=== PATIENT | male | born 1985 | race Caucasian/White ===

== ENCOUNTER 2017-01-11 07:27 | Inpatient (IN) | payer SELFPAY ==
[~2017-01-11] VITALS: Ht 172.7 cm; Wt 73.7 kg
[2017-01-11 07:27] VITALS: BP 138/66; PULSE 121; RESP 15; TEMP 99.2; O2SAT 99
[~2017-01-11 07:27] MED LIST: CLIN150 PO; IBUP-232 PO
[2017-01-11] MEDS ORDERED: oxyCODONE/ACETAMINOPHEN 5 MG/325 MG TAB PO ONE (08:00)
[2017-01-11] MEDS ORDERED: VANCOMYCIN INJ 1,000 MG in SODIUM CHLOR 0.9% 250 ML INJ 250 ML IV ONE (08:00)
[2017-01-11] MEDS ORDERED: SODIUM CHLOR 0.9% 1000 ML INJ 1,000 ML IV ONE (08:00)
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
[2017-01-11 08:18] VITALS: PULSE 102
[2017-01-11 08:23] LABS: AUTOMATED NEUTROPHIL # 24.3 TH/MM3 (1.8-7.7); BASOPHIL # 0.1 TH/MM3 (0-0.2); BASOPHIL % 0.4 % (0.0-2.0); EOSINOPHIL # 0.3 TH/MM3 (0-0.4); EOSINOPHIL % 0.8 % (0.0-4.0); HEMATOCRIT 37.1 % (39.0-51.0); LYMPH % 15.9 % (9.0-44.0); LYMPHOCYTE # 5.3 TH/MM3 (1.0-4.8); MEAN CELL VOLUME 92.8 FL (80.0-100.0); MEAN CORPUSCULAR HEMOGLOBIN 31.2 PG (27.0-34.0); MEAN CORPUSCULAR HGB CONC 33.6 % (32.0-36.0); MONO % 9.8 % (0.0-8.0); NEUT % 73.1 % (16.0-70.0); PLATELET COUNT 293 TH/MM3 (150-450); RED CELL DISTRIBUTION WIDTH 13.1 % (11.6-17.2); WHITE BLOOD COUNT 33.3 TH/MM3 (4.0-11.0)
[2017-01-11 08:32] LABS: HEMO FLAGS AUTO DIFF
[2017-01-11 08:40] LABS: ALKALINE PHOSPHATASE 93 U/L (45-117); TOTAL BILIRUBIN ADULT 0.9 MG/DL (0.2-1.0)
[2017-01-11 08:48] LABS: ALT (GPT) 54 U/L (12-78); ANION GAP 9 MEQ/L (5-15); AST (GOT) 28 U/L (15-37); BLOOD UREA NITROGEN 7 MG/DL (7-18); CHLORIDE 101 MEQ/L (98-107); GLOMERULAR FILTRATION RATE 88 ML/MIN (>89); POTASSIUM 3.2 MEQ/L (3.5-5.1); SODIUM (NA) 136 MEQ/L (136-145)
[2017-01-11 09:18] LABS: BANDS 11 % (0-6); BASOPHILS 1 % (0-2); EOSINOPHILS 2 % (0-4); NEUTROPHIL # MANUAL DIFF 22.3 TH/MM3 (1.8-7.7); POLYS (SEG NEUTROPHILS) 56 % (16-70); WBC DIFF SAMPLE 100
[2017-01-11 09:19] LABS: SCAN/DIFF FINAL DIFF MANUAL
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
[2017-01-11 10:02] VITALS: BP 97/55; PULSE 90; RESP 18; O2SAT 97
[2017-01-11] MEDS ORDERED: KETOROLAC TROMETHAMINE 30 MG/ML (IVP) VIAL IVP PRN (10:15)
[2017-01-11] MEDS ORDERED: ACETAMINOPHEN 500 MG CPLT PO PRN (10:15)
[2017-01-11] MEDS ORDERED: SODIUM CHLORIDE 0.9% FLUSH 10 ML FLUSH IV FLUSH PRN (10:15)
--- NOTE | 2017-01-11 10:58 | RADRPT ---
EXAM DATE/TIME: 01/11/2017 10:24 [place] COMPARISON: No previous studies available for comparison. INDICATIONS : Swelling and redness right ankle MEDICAL HISTORY : None. SURGICAL HISTORY : None. ENCOUNTER: Initial ACUITY: 1 day PAIN SCORE: Non-responsive. LOCATION: Right Ankle FINDINGS: No definite fractures, or dislocations are identified. No definite lytic or sclerotic lesion is seen . Soft tissue swelling is identified. CONCLUSION: Soft tissue swelling and no definite fracture for technique. KRissa Steve MD on January 11, 2017 at 10:56 Board Certified Radiologist. This report was verified electronically.
[2017-01-11 11:30] LABS: AMPHETAMINE, URINE POS (NEG); BARBITURATES, URINE NEG (NEG); COCAINE, URINE NEG (NEG)
[2017-01-11 12:30] VITALS: BP 97/52; PULSE 69; RESP 16; TEMP 96; O2SAT 100
[2017-01-11] MEDS ORDERED: POTASSIUM CHLORIDE 10 MEQ CAP PO ONE (12:45)
[2017-01-11 16:00] VITALS: BP 107/55; PULSE 88; RESP 16; TEMP 96.1; O2SAT 100
--- NOTE | 2017-01-11 16:52 | EKG ---
Date Performed: 01/11/2017 Time Performed: 13:10:57 PTAGE: 31 years EKG: Sinus rhythm POSSIBLE INFERIOR MYOCARDIAL INFARCTION , PROBABLY OLD BORDERLINE ECG NO PREVIOUS TRACING DOCTOR: Jamie Kendall Interpretating Date/Time 01/11/2017 16:50:40
[2017-01-11] MEDS: ACETAMINOPHEN/HYDROcodone 325 MG/7.5 MG TAB PO PRN ×2 (17:14→22:47)
--- NOTE | 2017-01-11 19:25 | HHI.PR ---
Addendum to Inpatient Note Addendum Reason: Additional Documentation Additional Information Interval history: UDS positive for amphetamines Most recent vitals: Temperature: 96.1, HR: 88, RR: 16, BP: 107/55, O2: 100% on room air Pt seen at approximately 18:15. He was significantly more alert. He was trying to have an important conversation on the phone. He reported that he was doing fine and asked if I could come back at another time so he could finish his conversation. He is conversing appropriately and is able to answer questions. Altered mental status appears to have resolved. Continue to monitor. Rose Santizo MD R2 Jan 11, 2017 19:25
[2017-01-11] MEDS: SODIUM CHLOR 0.9% 1000 ML INJ 1,000 ML IV SCH (19:47)
[2017-01-11 20:00] VITALS: BP 92/51; PULSE 79; RESP 19; TEMP 96.2; O2SAT 100
[2017-01-11] MEDS: VANCOMYCIN INJ 1,500 MG in SODIUM CHLORID 0.9% 500 ML INJ 500 ML IV SCH (22:11)
[2017-01-11] MEDS: SODIUM CHLORIDE 0.9% FLUSH 10 ML FLUSH IV FLUSH SCH (22:11)
[2017-01-12] VITALS: BP 104/57; PULSE 91; RESP 18; TEMP 97.1; O2SAT 100
[2017-01-12 04:00] VITALS: BP 94/51; PULSE 72; RESP 18; TEMP 97.1; O2SAT 100
[2017-01-12] MEDS: SODIUM CHLOR 0.9% 1000 ML INJ 1,000 ML IV SCH ×3 (05:03→22:56)
[2017-01-12] MEDS: ACETAMINOPHEN/HYDROcodone 325 MG/7.5 MG TAB PO PRN ×4 (05:05→20:22)
[2017-01-12 07:56] LABS: AUTOMATED NEUTROPHIL # 9.8 TH/MM3 (1.8-7.7); BASOPHIL # 0.1 TH/MM3 (0-0.2); BASOPHIL % 0.4 % (0.0-2.0); EOSINOPHIL # 0.4 TH/MM3 (0-0.4); EOSINOPHIL % 2.8 % (0.0-4.0); LYMPH % 18.6 % (9.0-44.0); LYMPHOCYTE # 2.7 TH/MM3 (1.0-4.8); MEAN CELL VOLUME 93.7 FL (80.0-100.0); MEAN CORPUSCULAR HGB CONC 33.1 % (32.0-36.0); MONO % 10.7 % (0.0-8.0); NEUT % 67.5 % (16.0-70.0); PLATELET COUNT 324 TH/MM3 (150-450); RED BLOOD COUNT 3.84 MIL/MM3 (4.50-5.90); RED CELL DISTRIBUTION WIDTH 13.3 % (11.6-17.2); WHITE BLOOD COUNT 14.5 TH/MM3 (4.0-11.0)
[2017-01-12 08:00] VITALS: BP 97/53; PULSE 75; RESP 18; TEMP 98.7; O2SAT 100
[2017-01-12 08:00] LABS: HEMO FLAGS AUTO DIFF
[2017-01-12 08:28] LABS: BICARBONATE 26.1 MEQ/L (21.0-32.0); POTASSIUM 4.1 MEQ/L (3.5-5.1)
[2017-01-12 08:45] LABS: BANDS 12 % (0-6); EOSINOPHILS 2 % (0-4); NEUTROPHIL # MANUAL DIFF 10.9 TH/MM3 (1.8-7.7); POLYS (SEG NEUTROPHILS) 63 % (16-70); WBC DIFF SAMPLE 100
[2017-01-12 08:46] LABS: PLATELET ESTIMATE SMEAR NORMAL (NORMAL); PLATELET MORPHOLOGY NORMAL (NORMAL); SCAN/DIFF FINAL DIFF MANUAL
[2017-01-12] MEDS: ENOXAPARIN SODIUM 40 MG/0.4 ML SYRINGE SQ SCH ×2 (10:27→10:31)
[2017-01-12] MEDS: VANCOMYCIN INJ 1,500 MG in SODIUM CHLORID 0.9% 500 ML INJ 500 ML IV SCH ×2 (10:28→20:23)
[2017-01-12] MEDS: SODIUM CHLORIDE 0.9% FLUSH 10 ML FLUSH IV FLUSH SCH ×2 (10:28→22:54)
[2017-01-12 13:00] VITALS: BP 106/54; PULSE 86; RESP 18; TEMP 97.4; O2SAT 97
[2017-01-12] MEDS ORDERED: CHLORHEXIDINE GLUCONATE 4% SOLN 120 ML BTL TOPICAL ONE (13:30)
[2017-01-12] MEDS: MUPIROCIN 2% OINT 22 GM TUBE TOPICAL SCH ×2 (13:30→21:00)
[2017-01-12] MEDS ORDERED: MUPIROCIN 2% OINT 22 GM TUBE TOPICAL SCH (14:00)
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
[2017-01-12 16:00] VITALS: BP 104/57; PULSE 74; RESP 18; TEMP 98; O2SAT 98
[2017-01-12 20:15] VITALS: BP 112/59; PULSE 95; RESP 16; TEMP 97.1; O2SAT 99
[2017-01-13] VITALS: BP 112/58; PULSE 97; RESP 16; TEMP 96.5; O2SAT 98
[2017-01-13] MEDS: ACETAMINOPHEN/HYDROcodone 325 MG/7.5 MG TAB PO PRN ×6 (00:26→22:40)
[2017-01-13 00:45] LABS: MRSA PCR POSITIVE (NEGATIVE); STAPH AUREUS PCR POSITIVE (NEGATIVE)
[2017-01-13 04:00] VITALS: BP 132/58; PULSE 72; RESP 16; TEMP 96.6; O2SAT 99
[2017-01-13 08:48] VITALS: BP 102/66; PULSE 86; RESP 16; TEMP 96.8; O2SAT 96
[2017-01-13] MEDS: VANCOMYCIN INJ 1,500 MG in SODIUM CHLORID 0.9% 500 ML INJ 500 ML IV SCH ×2 (08:59→22:40)
[2017-01-13] MEDS: SODIUM CHLORIDE 0.9% FLUSH 10 ML FLUSH IV FLUSH SCH ×2 (09:00→21:00)
[2017-01-13] MEDS: MUPIROCIN 2% OINT 22 GM TUBE TOPICAL SCH ×2 (09:01→21:00)
[2017-01-13 10:16] LABS: HEMATOCRIT 36.9 % (39.0-51.0); MEAN CORPUSCULAR HEMOGLOBIN 31.5 PG (27.0-34.0); MEAN CORPUSCULAR HGB CONC 33.6 % (32.0-36.0); PLATELET COUNT 385 TH/MM3 (150-450); RED BLOOD COUNT 3.93 MIL/MM3 (4.50-5.90); RED CELL DISTRIBUTION WIDTH 13.6 % (11.6-17.2); REVIEW FLAG FINAL; WHITE BLOOD COUNT 10.3 TH/MM3 (4.0-11.0)
[2017-01-13 11:01] LABS: BICARBONATE 27.9 MEQ/L (21.0-32.0); POTASSIUM 4.3 MEQ/L (3.5-5.1)
[2017-01-13] MEDS: ENOXAPARIN SODIUM 40 MG/0.4 ML SYRINGE SQ SCH (11:09)
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
[2017-01-13 12:00] VITALS: BP 110/61; PULSE 76; RESP 16; TEMP 96; O2SAT 98
[2017-01-13] MEDS: SODIUM CHLOR 0.9% 1000 ML INJ 1,000 ML IV SCH ×2 (14:01→22:41)
[2017-01-13 16:00] VITALS: BP 102/54; PULSE 76; RESP 16; TEMP 96.6; O2SAT 98
[2017-01-13 20:00] VITALS: BP 111/59; PULSE 60; RESP 18; TEMP 98; O2SAT 97
[2017-01-14] VITALS: BP 113/56; PULSE 69; RESP 16; TEMP 97.5; O2SAT 99
[2017-01-14 04:00] VITALS: BP 104/55; PULSE 87; RESP 16; TEMP 98.2; O2SAT 100
[2017-01-14] MEDS: SODIUM CHLOR 0.9% 1000 ML INJ 1,000 ML IV SCH (06:35)
[2017-01-14 08:00] VITALS: BP 110/53; PULSE 85; RESP 18; TEMP 98.5; O2SAT 97
[2017-01-14] MEDS: VANCOMYCIN INJ 1,500 MG in SODIUM CHLORID 0.9% 500 ML INJ 500 ML IV SCH ×2 (08:26→20:58)
[2017-01-14] MEDS: SODIUM CHLORIDE 0.9% FLUSH 10 ML FLUSH IV FLUSH SCH ×2 (08:26→20:54)
[2017-01-14] MEDS: ACETAMINOPHEN/HYDROcodone 325 MG/7.5 MG TAB PO PRN ×4 (08:28→22:12)
[2017-01-14] MEDS: MUPIROCIN 2% OINT 22 GM TUBE TOPICAL SCH ×2 (08:32→21:02)
[2017-01-14 12:00] VITALS: BP 104/57; PULSE 78; RESP 16; TEMP 98.4; O2SAT 99
[2017-01-14] MEDS: ENOXAPARIN SODIUM 40 MG/0.4 ML SYRINGE SQ SCH (13:52)
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
--- NOTE | 2017-01-14 15:55 | HHI.DCPOC ---
Discharge Care Plan Diagnosis: (1) Drug use (2) Cellulitis of right leg (3) Sepsis Goals to Promote Your Health * To prevent worsening of your condition and complications * To maintain your health at the optimal level Directions to Meet Your Goals Take your medications as prescribed Follow your dietary instruction Follow activity as directed Keep your appointments as scheduled Take your immunizations and boosters as scheduled If your symptoms worsen call your PCP, if no PCP go to Urgent Care Center or Emergency Room Smoking is Dangerous to Your Health. Avoid second hand smoke Call the 24-hour hour crisis hotline for domestic abuse at Rose Santizo MD R2 Jan 14, 2017 15:55
[2017-01-14 16:00] VITALS: BP 114/68; PULSE 89; RESP 18; TEMP 98.6; O2SAT 99
[2017-01-14] MEDS ORDERED: IBUP-232 PO (16:03)
[2017-01-14] MEDS ORDERED: HYDR-3580 PO (16:03)
[2017-01-14] MEDS ORDERED: [UNRECOGNIZED DRUG - REMARK] IV ONE (16:30)
[2017-01-14 20:30] VITALS: BP 106/57; PULSE 89; RESP 16; TEMP 96.3; O2SAT 100
[2017-01-15] VITALS: BP 113/58; PULSE 76; RESP 16; TEMP 96.7; O2SAT 97
[2017-01-15 04:00] VITALS: BP 115/55; PULSE 65; RESP 16; TEMP 97.3; O2SAT 99
[2017-01-15] MEDS: SODIUM CHLOR 0.9% 1000 ML INJ 1,000 ML IV SCH (04:44)
[2017-01-15 08:00] VITALS: BP 104/54; PULSE 81; RESP 16; TEMP 96.4; O2SAT 98
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
[2017-01-15] MEDS: SODIUM CHLORIDE 0.9% FLUSH 10 ML FLUSH IV FLUSH SCH (09:00)
[2017-01-15] MEDS ORDERED: ASP: No known hypersensitivity to Vanco, Telavancin, Dalbavancin OTHER ONE (09:45)
[2017-01-15] MEDS: ENOXAPARIN SODIUM 40 MG/0.4 ML SYRINGE SQ SCH (10:39)
[2017-01-15] MEDS: ACETAMINOPHEN/HYDROcodone 325 MG/7.5 MG TAB PO PRN (10:48)
[2017-01-15] MEDS ORDERED: DALBAVANCIN IV ONE ×2 (11:00)
[2017-01-15] MEDS ORDERED: D5 IV ONE ×2 (11:00)
[2017-01-15 12:00] VITALS: BP 111/59; PULSE 103; RESP 16; TEMP 97.2; O2SAT 100
[2017-01-15 13:07] VITALS: RESP 15
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
== END 2017-01-15 14:00 | disposition home or self-care (01) | DRG 603 ==
LOC: NEPC 07:27 → NEDA 10:15 → HOCA 12:25
PROVIDERS: ADMIT Family Medicine; ATTEND Family Medicine
DX: L03.115 Cellulitis of right lower limb (principal); F17.210 Nicotine dependence, cigarettes, uncomplicated; F19.10 Other psychoactive substance abuse, uncomplicated; L03.116 Cellulitis of left lower limb; Z59.0 Homelessness; Z90.81 Acquired absence of spleen; W26.8XXA Contact with other sharp object(s), not elsewhere classified, initial encounter; Y92.9 Unspecified place or not applicable
CPT/HCPCS: 73600; 80048; 80053; 80307; 83605; 85007; 85027; 85652; 86403; 87040; 87070; 87077; 87147; 87186; 87205; 87640; 87641; 93005; 96365; J0875; J1650; J1885; J3370; J7030; J7040; J7050; J7060